=== PATIENT | female | born 2000 | race African-American/Black ===

== ENCOUNTER → 2024-02-08 19:47 | Outpatient (CLI) | payer OTHER, SELFPAY ==
--- NOTE | 2024-02-08 | DI.MRI.S_ITS ---
PROCEDURE: MR ANGIO HEAD WO CON INDICATIONS: PAPILLEDEMA TECHNIQUE: Noncontrast axial 3-D [id number] MR angiogram, with 3-dimensional maximum intensity projection (MIP) reformats of the internal carotid arteries and posterior circulation then performed. COMPARISON: [facility], MR, MR OPTIC NRV WWO CON, 02/08/2024, 20:27. FINDINGS: Image quality: Excellent. Anterior circulation: Intracranial internal carotid arteries demonstrate normal size and intraluminal flow signal. The flow within the paired anterior cerebral arteries is normal and symmetric. The flow within the middle cerebral arteries is normal and symmetric. The anterior communicating artery is seen. No stenoses, occlusions, or aneurysms. Posterior circulation: Visualized portions of the vertebral arteries demonstrate normal caliber, and join to form a normal appearing basilar artery. The flow within the posterior cerebral arteries is normal and symmetric. No stenoses, occlusions, or aneurysms. MRV images demonstrate mildly hypoplastic appearance the left transverse sinus. However, signal is identified within the sigmoid sinus as well as internal jugular vein. IMPRESSION: No areas of hemodynamically significant stenosis, vascular occlusion or aneurysmal dilation within the anterior /posterior circulation. Hypoplasia the left transverse sinus. No priors are available for comparison. 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 Dictated by: Belen Steven M.D. on 02/09/2024 at 11:56 Approved by: Belen Steven M.D. on 02/09/2024 at 12:00
--- NOTE | 2024-02-08 19:55 | DI.MRI.S_ITS ---
PROCEDURE: MR OPTIC NRV WWO CON INDICATIONS: PAPILLEDEMA TECHNIQUE: Noncontrast sagittal T1 spin echo, axial FLAIR, axial gradient echo, axial diffusion and ADC acquired through the brain. Coronal STIR, thin-slice axial T1 spin echo through the orbits. After the administration of contrast, thin-slice axial and coronal T1 spin echo with fat saturation through the orbits, axial and coronal and sagittal T1 spin echo with fat saturation through the brain. COMPARISON: None. FINDINGS: Image quality: Excellent. Orbits: Globes are symmetrical. The optic nerves are normal in size, without abnormal signal or enhancement. No retrobulbar masses or fat abnormalities. The extra-ocular muscles are normal and symmetric in appearance. Lacrimal glands are normal. Optic chiasm is normal. Periorbital soft tissues appear normal. CSF spaces: Ventricles are normal in size and shape. Basal cisterns are patent. No extra-axial fluid collections. Brain: No intracranial bleeds or mass effects. No abnormal intracranial enhancement. Álvarez-white matter interface is intact. Diffusion weighted images demonstrate no acute ischemic insults. Pituitary gland appears normal, without sellar or suprasellar masses. Brainstem appears normal. Normal intravascular flow voids are present. Skull and face: Calvarial marrow is normal in signal. Sinuses: Sinuses and mastoids are clear. IMPRESSION: Unremarkable MRI of the brain and orbits. Both optic nerves abnormal signal without enhancement. No sheath distension. Approved by: Javon Rico M.D. on 02/09/2024 at 17:19
== END ==
LOC: MRI 19:52
PROVIDERS: PCP Optometrist; Referring Provider Optometrist; Visit Provider Optometrist
DX: H47.10 Unspecified papilledema (principal)
CPT/HCPCS: 70543; 70544; 70553; A9579